=== PATIENT | female | born 1935 | race Native Hawaiian/Other Pacific Islander ===

== ENCOUNTER → 2017-07-21 21:25 | Outpatient (CLI) | payer OTHER, BC | END | disposition home or self-care (01) | LOC: AMB 21:25 | DX: S00.03XA Contusion of scalp, initial encounter (principal); W07.XXXA Fall from chair, initial encounter; Y92.128 Other place in nursing home as the place of occurrence of the external cause | CPT/HCPCS: A0425; A0427 ==

== ENCOUNTER 2017-08-04 12:01 | Outpatient (CLI) | payer OTHER, BC | END 2017-08-04 13:05 | disposition home or self-care (01) | LOC: RAD 12:01 | DX: R42 Dizziness and giddiness (principal) ==

== ENCOUNTER 2017-09-16 00:24 | Outpatient (CLI) | payer OTHER, BC | END 2017-09-16 00:28 | disposition short-term general hospital (02) | LOC: AMB 00:24 | DX: M53.3 Sacrococcygeal disorders, not elsewhere classified (principal); W01.0XXA Fall on same level from slipping, tripping and stumbling without subsequent striking against object, initial encounter; Y92.092 Bedroom in other non-institutional residence as the place of occurrence of the external cause | CPT/HCPCS: A0425; A0429 ==

== ENCOUNTER 2017-09-16 00:31 | Emergency (ER) | payer OTHER, BC ==
[~2017-09-16] VITALS: Ht 160 cm; Wt 54.4 kg
[2017-09-16 02:55] VITALS: BP 161/92; TEMP 98.1
== END 2017-09-16 02:59 | disposition home or self-care (01) ==
LOC: ED 00:31
DX: S22.008A Other fracture of unspecified thoracic vertebra, initial encounter for closed fracture (principal); M41.86 Other forms of scoliosis, lumbar region; W18.39XA Other fall on same level, initial encounter; Y92.098 Other place in other non-institutional residence as the place of occurrence of the external cause
CPT/HCPCS: 96372; 99283; J1885

== ENCOUNTER 2017-09-20 04:53 | Outpatient (CLI) | payer OTHER, BC | END 2017-09-20 04:57 | disposition short-term general hospital (02) | LOC: AMB 04:53 | DX: M25.512 Pain in left shoulder (principal); S00.03XA Contusion of scalp, initial encounter; W18.39XA Other fall on same level, initial encounter; Y92.098 Other place in other non-institutional residence as the place of occurrence of the external cause | CPT/HCPCS: A0425; A0429 ==

== ENCOUNTER 2017-09-20 05:00 | Emergency (ER) | payer OTHER, BC ==
[~2017-09-20] VITALS: Ht 162.6 cm; Wt 54.4 kg
[2017-09-20 05:11] VITALS: TEMP 98.1
[2017-09-20 08:00] VITALS: BP 142/88
== END 2017-09-20 08:59 | disposition home or self-care (01) ==
LOC: ED 05:00
DX: S22.42XA Multiple fractures of ribs, left side, initial encounter for closed fracture (principal); R51 Headache; M25.512 Pain in left shoulder; W18.39XA Other fall on same level, initial encounter; Y92.098 Other place in other non-institutional residence as the place of occurrence of the external cause
CPT/HCPCS: 99283

== ENCOUNTER 2017-09-23 03:58 | Outpatient (CLI) | payer OTHER, BC | END 2017-09-23 04:01 | disposition short-term general hospital (02) | LOC: AMB 03:58 | DX: M25.512 Pain in left shoulder (principal); W18.39XA Other fall on same level, initial encounter; Y92.091 Bathroom in other non-institutional residence as the place of occurrence of the external cause | CPT/HCPCS: A0425; A0429 ==

== ENCOUNTER 2017-09-23 04:07 | Emergency (ER) | payer OTHER, BC ==
[~2017-09-23] VITALS: Ht 162.6 cm; Wt 54.4 kg
[2017-09-23 08:58] VITALS: BP 148/88; TEMP 98.2
== END 2017-09-23 08:58 | disposition home or self-care (01) ==
LOC: ED 04:07
DX: S70.02XA Contusion of left hip, initial encounter (principal); S40.012A Contusion of left shoulder, initial encounter; W18.39XA Other fall on same level, initial encounter; Y92.89 Other specified places as the place of occurrence of the external cause
CPT/HCPCS: 99283

== ENCOUNTER 2017-09-27 16:52 | Outpatient (CLI) | payer OTHER, BC | END 2017-09-27 16:58 | disposition short-term general hospital (02) | LOC: AMB 16:52 | DX: S00.03XA Contusion of scalp, initial encounter (principal); M79.605 Pain in left leg; M79.604 Pain in right leg; R07.81 Pleurodynia; W18.39XA Other fall on same level, initial encounter; Y92.098 Other place in other non-institutional residence as the place of occurrence of the external cause | CPT/HCPCS: A0425; A0429 ==

== ENCOUNTER 2017-09-27 17:00 | Emergency (ER) | payer OTHER, BC ==
[~2017-09-27] VITALS: Ht 165.1 cm; Wt 77.1 kg
[2017-09-27 19:17] LABS: PLATELET COUNT 500 K/uL (152-353)
[2017-09-27 19:23] LABS: POTASSIUM 3.2 mmol/L (3.6-5.2); SODIUM 121 mmol/L (136-145)
== END 2017-09-27 19:40 | disposition home or self-care (01) ==
LOC: ED 17:00
DX: S00.83XA Contusion of other part of head, initial encounter (principal); S00.03XA Contusion of scalp, initial encounter; S20.211A Contusion of right front wall of thorax, initial encounter; M50.30 Other cervical disc degeneration, unspecified cervical region; M47.892 Other spondylosis, cervical region; W18.39XA Other fall on same level, initial encounter; Z91.81 History of falling; Y92.098 Other place in other non-institutional residence as the place of occurrence of the external cause
CPT/HCPCS: 80048; 85027; 99283; J1885; J2930

== ENCOUNTER 2017-09-29 23:35 | Outpatient (CLI) | payer OTHER, BC | END 2017-09-29 23:38 | disposition short-term general hospital (02) | LOC: AMB 23:35 | DX: S00.83XA Contusion of other part of head, initial encounter (principal); W01.198A Fall on same level from slipping, tripping and stumbling with subsequent striking against other object, initial encounter; Y92.098 Other place in other non-institutional residence as the place of occurrence of the external cause | CPT/HCPCS: A0425; A0429 ==

== ENCOUNTER 2017-09-29 23:38 | Emergency (ER) | payer OTHER, BC ==
[~2017-09-29] VITALS: Ht 162.6 cm; Wt 54.4 kg
[2017-09-30 01:52] VITALS: BP 141/68; TEMP 98.2
== END 2017-09-30 01:56 ==
LOC: ED 23:38
DX: S00.83XA Contusion of other part of head, initial encounter (principal); G31.89 Other specified degenerative diseases of nervous system; W01.198A Fall on same level from slipping, tripping and stumbling with subsequent striking against other object, initial encounter; Y92.098 Other place in other non-institutional residence as the place of occurrence of the external cause
CPT/HCPCS: 99283

== ENCOUNTER 2017-10-06 18:31 | Outpatient (CLI) | payer OTHER, BC ==
[2017-10-07] MEDS ORDERED: PROTONIX20 MG PO (02:07)
[2017-10-07] MEDS ORDERED: WOMENS MULTI PO (02:08)
[2017-10-07] MEDS ORDERED: LISI10TA11 PO (02:08)
[2017-10-07] MEDS ORDERED: HYDR25TA60 PO (02:09)
[2017-10-07] MEDS ORDERED: SIMV20TA2 PO (02:10)
[2017-10-07] MEDS ORDERED: TRILEPTAL150 MG PO (02:11)
[2017-10-07] MEDS ORDERED: INDOMETHACIN ER75 MG PO (02:12)
[2017-10-07] MEDS ORDERED: MIRALAX3350 N1 OR (02:13)
[2017-10-07] MEDS ORDERED: RESTASIS0.05 % OP (02:15)
[2017-10-07] MEDS ORDERED: CETI10TA PO (02:15)
[2017-10-07] MEDS ORDERED: SERT50TA PO (02:16)
[2017-10-07] MEDS ORDERED: TRAM50TA PO (02:17)
[2017-10-07] MEDS ORDERED: MELATONIN1 TA1 PO (02:18)
[2017-10-07] MEDS ORDERED: DOCU100C10 PO (02:19)
[2017-10-07] MEDS ORDERED: LAMICTAL150 MG PO (02:20)
[2017-10-07] MEDS ORDERED: OXYBUTYNIN10 MG PO (02:21)
[2017-10-07] MEDS ORDERED: LOPERAMIDE2 MG PO (02:22)
[2017-10-07] MEDS ORDERED: HYDR25CA25 PO (02:23)
[2017-10-07] MEDS ORDERED: ACUVAIL OP (02:25)
[2017-10-07] MEDS ORDERED: CIPR500T PO (10:24)
== END 2017-10-06 18:35 | disposition short-term general hospital (02) ==
LOC: AMB 18:31
DX: R41.82 Altered mental status, unspecified (principal); W18.39XA Other fall on same level, initial encounter; Y92.092 Bedroom in other non-institutional residence as the place of occurrence of the external cause
CPT/HCPCS: A0425; A0427

== ENCOUNTER 2017-10-06 18:39 | Observation (INO) | payer OTHER, BC ==
[~2017-10-06] VITALS: Ht 160 cm; Wt 48.7 kg
[2017-10-06 18:40] VITALS: BP 144/87; TEMP 97.9
[2017-10-06 19:19] LABS: PLATELET COUNT 681 K/uL (152-353)
[2017-10-06 19:25] LABS: POTASSIUM 3.3 mmol/L (3.6-5.2)
[2017-10-06 21:05] VITALS: BP 174/77
[2017-10-07 01:45] VITALS: BP 145/76; TEMP 98.2; Ht 160 cm; Wt 48.7 kg
[2017-10-07] MEDS ORDERED: PROTONIX20 MG PO (02:07)
[2017-10-07] MEDS ORDERED: LISI10TA11 PO (02:08)
[2017-10-07] MEDS ORDERED: WOMENS MULTI PO (02:08)
[2017-10-07] MEDS ORDERED: HYDR25TA60 PO (02:09)
[2017-10-07] MEDS ORDERED: SIMV20TA2 PO (02:10)
[2017-10-07] MEDS ORDERED: TRILEPTAL150 MG PO (02:11)
[2017-10-07] MEDS ORDERED: INDOMETHACIN ER75 MG PO (02:12)
[2017-10-07] MEDS ORDERED: MIRALAX3350 N1 OR (02:13)
[2017-10-07] MEDS ORDERED: CETI10TA PO (02:15)
[2017-10-07] MEDS ORDERED: RESTASIS0.05 % OP (02:15)
[2017-10-07] MEDS ORDERED: SERT50TA PO (02:16)
[2017-10-07] MEDS ORDERED: TRAM50TA PO (02:17)
[2017-10-07] MEDS ORDERED: MELATONIN1 TA1 PO (02:18)
[2017-10-07] MEDS ORDERED: DOCU100C10 PO (02:19)
[2017-10-07] MEDS ORDERED: LAMICTAL150 MG PO (02:20)
[2017-10-07] MEDS ORDERED: OXYBUTYNIN10 MG PO (02:21)
[2017-10-07] MEDS ORDERED: LOPERAMIDE2 MG PO (02:22)
[2017-10-07] MEDS ORDERED: HYDR25CA25 PO (02:23)
[2017-10-07] MEDS ORDERED: ACUVAIL OP (02:25)
[2017-10-07 04:00] VITALS: BP 146/83; TEMP 98.5
[2017-10-07 08:00] VITALS: BP 166/82; TEMP 98.8
[2017-10-07] MEDS ORDERED: CIPR500T PO (10:24)
[2017-10-07 12:00] VITALS: BP 158/72; TEMP 98.7
[2017-10-07 16:00] VITALS: BP 139/67; TEMP 98.7
[2017-10-07 20:00] VITALS: BP 108/58; TEMP 98.1
[2017-10-08] VITALS: BP 135/68; TEMP 99.1
[2017-10-08 04:00] VITALS: BP 138/67; TEMP 98.4
[2017-10-08 05:56] LABS: PLATELET COUNT 544 K/uL (152-353)
[2017-10-08 06:04] LABS: POTASSIUM 2.8 mmol/L (3.6-5.2); SODIUM 127 mmol/L (136-145)
[2017-10-08 08:00] VITALS: BP 131/76; TEMP 98.6
[2017-10-08 12:00] VITALS: BP 152/74; TEMP 98.7
[2017-10-08 16:00] VITALS: BP 152/79; TEMP 99.3
[2017-10-08 20:00] VITALS: BP 131/68; TEMP 99.3
[2017-10-09] VITALS: BP 167/77; TEMP 98.3
[2017-10-09 04:00] VITALS: BP 178/87; TEMP 98.6
[2017-10-09 05:29] LABS: PLATELET COUNT 558 K/uL (152-353)
[2017-10-09 05:52] LABS: POTASSIUM 3.2 mmol/L (3.6-5.2); SODIUM 129 mmol/L (136-145)
[2017-10-09 08:00] VITALS: BP 156/78; TEMP 98.7
--- NOTE | 2017-10-09 08:30 | NUR ---
PATIENT SITTING UP IN BED WITH BREAKFAST TRAY SET UP. I ATTEMPTED TO FEED HER SOME GRITS AND EGGS WHICH SHE SAID SHE WANTED BUT THEN IMMEDIATELY SPIT OUT. PATIENT DID SWALLOW HER AM MEDICATIONS WITH NO PROBLEMS. WHILE CHANGING PATIENTS GOWN AND LINENS HER BOTTOM DENTURES WERE FOUND IN THE BED WITH HER. WE LOOKED CAREFULLED THROUGH HER LINENS, THE TRASH AND THE ROOM FOR THE TOP PLATE BUT DID NOT FIND THEM. PATIENT IS UNABLE TO PROVIDE ANY INFORMATION TO WHERE THE DENTURES MIGHT BE.
--- NOTE | 2017-10-09 11:00 | NUR ---
ENTERED ROOM MULTIPLE TIMES TO FIND PATIENT HAS PULLED HER GOWN AND COVERS OFF. SHE IS, HOWEVER, VERY AGREEABLE WHEN PUTTING HER GOWN BACK ON AND STRAIGHTENING HER COVERS. NO SIGNS OF PAIN OR DISCOMFORT, NO REQUESTS.
--- NOTE | 2017-10-09 11:15 | NUR ---
ORDERS RECEIVED FOR PATIENT TO BE DISCHARGED AND SHE WILL [facility]. CALLED PATIENT'S SON, HEATHER AND LEFT A MESSAGE THAT SHE WILL BE LEAVING TODAY.
--- NOTE | 2017-10-09 12:40 | NUR ---
REPORT CALLED TO QUINTIN MILLAN AT THE [facility].
--- NOTE | 2017-10-09 13:15 | NUR ---
PATIENT TRANSPORTED TO [facility] VIA WHEELCHAIR. PATIENT'S BELONGINGS INCLUDING SHOES, CLOTHES, GLASSES, AND DENTURES (BOTTOM PLATE) SENT WITH PATIENT. PATIENT STABLE AT TIME OF DISCHARGE.
== END 2017-10-09 13:00 | disposition other institution (70) ==
LOC: ED 18:39 → MED/SURG 23:01
PROVIDERS: Emergency Medicine; ADMIT Specialist
DX: F44.89 Other dissociative and conversion disorders (principal); Z91.81 History of falling; D64.89 Other specified anemias; E87.1 Hypo-osmolality and hyponatremia; E87.6 Hypokalemia; E83.39 Other disorders of phosphorus metabolism; E83.42 Hypomagnesemia; N39.498 Other specified urinary incontinence; I10 Essential (primary) hypertension; K21.9 Gastro-esophageal reflux disease without esophagitis; K59.09 Other constipation; E78.4 Other hyperlipidemia
CPT/HCPCS: 36415; 80053; 81000; 82550; 82553; 83735; 84100; 84484; 85027; 93005; 99220; 99284; G0378

== ENCOUNTER 2017-10-15 11:45 | Inpatient (IN) | payer OTHER, BC ==
[2017-10-15] VITALS (13 sets, daily range): BP systolic 69–170; BP diastolic 47–97; TEMP 97.6–98.7; Ht 167.6 cm; Wt 45.2 kg
[~2017-10-15] VITALS: Ht 167.6 cm; Wt 45.2 kg
[~2017-10-15 11:45] MED LIST: ACUVAIL OP; CETI10TA PO; CIPR500T PO; DOCU100C10 PO; HYDR25CA25 PO; HYDR25TA60 PO; INDOMETHACIN ER75 MG PO; LAMICTAL150 MG PO; LISI10TA11 PO; LOPERAMIDE2 MG PO; MELATONIN1 TA1 PO; MIRALAX3350 N1 OR; OXYBUTYNIN10 MG PO; PROTONIX20 MG PO; RESTASIS0.05 % OP; SERT50TA PO; SIMV20TA2 PO; TRAM50TA PO; TRILEPTAL150 MG PO; WOMENS MULTI PO
[2017-10-15 12:18] LABS: PLATELET COUNT 578 K/uL (152-353)
[2017-10-15 12:38] LABS: POTASSIUM 4.8 mmol/L (3.6-5.2)
--- NOTE | 2017-10-15 19:00 | NUR ---
SON HERE REQUEST PLEASE DON'T GIVE MOTHER ANY IV NUTRIENT. Pt. IT IN WRITING AND SIGNED.
[2017-10-16] VITALS (14 sets, daily range): BP systolic 109–155; BP diastolic 61–93; TEMP 98.2–99.1
--- NOTE | 2017-10-16 02:35 | NUR ---
Pt. AWAKE AND TALKING. SPEECH IS CLEAR.
[2017-10-16 08:33] LABS: PLATELET COUNT 434 K/uL (152-353)
[2017-10-16 08:47] LABS: POTASSIUM 4.4 mmol/L (3.6-5.2)
--- NOTE | 2017-10-17 01:26 | NUR ---
10/16/17 2100 TURNED AND REPOSTIONED PER PCT DEVIN TOLERATED WELL.CC 10/17/17 0100 TURNED AND REPOSTIONED BRIEF CHANGED PERIAREA CLEANSED.HERNANDEZ CATHETER CARE GIVEN.HERNANDEZ DRAINING TO BEDSIDE CLEAR ANDREW URINE.PT TOLERATED WELL FOLLOWS INSTRUCTIONS.CC 10/17/17 0130 DSY TO LEFT FOREHEAD CHANGED WITH TINY DRAINAGE NOTED TO SITE. APPLIED SMALL TEGADERM TO AREA SECURED WITH PAPER TAPE.CC
[2017-10-17 06:10] LABS: PLATELET COUNT 430 K/uL (152-353)
[2017-10-17 06:17] LABS: POTASSIUM 4.2 mmol/L (3.6-5.2); SODIUM 138 mmol/L (136-145)
[2017-10-17 08:00] VITALS: BP 167/78; TEMP 98.7
--- NOTE | 2017-10-17 09:12 | NUR ---
RECEIVED CALLED FROM [facility] AT THIS TIME REGARDING PT'S STATUS.
[2017-10-17 23:01] VITALS: BP 147/71; TEMP 98.8
[2017-10-18 05:38] LABS: PLATELET COUNT 405 K/uL (152-353)
[2017-10-18 06:01] LABS: POTASSIUM 3.8 mmol/L (3.6-5.2); SODIUM 133 mmol/L (136-145)
--- NOTE | 2017-10-18 15:00 | NUR ---
PT WORKED WIT Pt. Pt. TOOK A COUPLE OF STEPS. SON IN ROOM.
[2017-10-19 08:00] VITALS: BP 101/61; TEMP 97.7
--- NOTE | 2017-10-19 16:00 | NUR ---
REPORT CALLED TO JADA DOSHI AT [facility]. Pt. WILL BE DISCHARGED AND SON WILL CARRY Pt. TO [facility].
--- NOTE | 2017-10-19 17:49 | NUR ---
HERNANDEZ CATHETER D/C'd. DISCHARGE INSTRUCTIONS SIGNED AND GIVEN Pt. EXIT OUT OF FRONT ENTRANCE VIA W/C.
== END 2017-10-19 17:45 | DRG 605 ==
LOC: ICU 11:45 → MED/SURG 10-16 11:29
DX: S00.03XA Contusion of scalp, initial encounter (principal); Y99.8 Other external cause status; Y92.238 Other place in hospital as the place of occurrence of the external cause; Y93.89 Activity, other specified; W19.XXXA Unspecified fall, initial encounter; R26.89 Other abnormalities of gait and mobility; E78.4 Other hyperlipidemia
CPT/HCPCS: 36415; 36600; 51702; 80053; 80307; 81000; 82550; 82805; 84484; 85027; 85379; 87088; 94760; 96365; 96367; G0479; J1885; J3411; J3490